=== PATIENT | female | born 1955 | race Caucasian/White ===

== ENCOUNTER 2023-08-27 05:40 | Day surgery (SDC) | payer OTHER ==
[2023-08-27] MEDS ORDERED: propofoL 200 MG/20 ML VIAL IV ONE (06:51)
[2023-08-27] MEDS ORDERED: LIDOCAINE 1% MPF 5 ML VIAL ONE (06:51)
[2023-08-27] MEDS: NA CHLORIDE 0.9% 1,000 ML ONE ×2 (07:18→07:26)
[2023-08-27 07:49] LABS: Potassium 3.8 mEq/L (3.5-5.1)
[2023-08-27] MEDS ORDERED: EPHEDRINE SULF 50 MG/ML VIAL ONE (07:52)
[2023-08-27] MEDS ORDERED: Phenylephrine HCl 10 MG/ML 1 ML VIAL ONE (08:17)
[2023-08-27 09:40] VITALS: BP 111/81; TEMP 98.1; O2SAT 100
--- NOTE | 2023-08-27 17:33 | EKG ---
Test Date: 2023-08-27 Test Time: 08:04:56 Anthropologist Physical: AUGUST MEASUREMENT RESULTS: Intervals: Rate: 69 WA: 184 QRSD: 126 QT: 438 QTc: 469 [place]: P: 81 WA: 184 QRS: 59 T: 35 INTERPRETIVE STATEMENTS: Normal sinus rhythm Right bundle branch block Abnormal ECG Compared to ECG 08/27/2023 08:04:13 Myocardial infarct finding no longer present Electronically Signed On 08-27-23 17:32:58 CAR HIKER by Art Castellon
--- NOTE | 2023-08-27 17:33 | EKG ---
Test Date: 2023-08-27 Test Time: 08:04:13 Plaster Machine Operator: AUGUST MEASUREMENT RESULTS: Intervals: Rate: 69 MA: 176 QRSD: 122 QT: 440 QTc: 471 [place]: P: 88 MA: 176 QRS: 52 T: 25 INTERPRETIVE STATEMENTS: Normal sinus rhythm Right bundle branch block Cannot rule out Inferior infarct, age undetermined Abnormal ECG Compared to ECG 10/11/2014 07:49:53 Myocardial infarct finding now present Sinus bradycardia no longer present Electronically Signed On 08-27-23 17:33:00 WHARF TENDER HELPER by Art Castellon
== END 2023-08-27 08:49 | disposition home or self-care (01) ==
LOC: OR 05:40
PROVIDERS: ATTEND Internal Medicine Gastroenterology
PROC: 0DB68ZX Excision of Stomach, Via Natural or Artificial Opening Endoscopic, Diagnostic (ICD-10-PCS; principal; 2023-08-27 07:30)
DX: R10.13 Epigastric pain (principal); R14.0 Abdominal distension (gaseous); K30 Functional dyspepsia; R11.2 Nausea with vomiting, unspecified; K29.50 Unspecified chronic gastritis without bleeding
CPT/HCPCS: 93005 ×2; 80048; 36415; 88304; 43239; J2704; J2001; J2371; J7030